=== PATIENT | female | born 1990 | race Caucasian/White ===

== ENCOUNTER 2016-08-20 19:04 | Emergency (ER) | payer OTHER ==
--- NOTE | 2016-08-20 20:07 | ED ---
Psych HPI - General Chief Complaint: Psychiatric Symptoms Stated Complaint: Suicidal Time Seen by Provider: 08/20/16 19:39 Source: patient, RN notes reviewed Mode of arrival: EMS - History of Present Illness Initial Comments: Patient is a 26-year-old female presents to the emergency room for psychiatric evaluation. Patient states that she's been depressed for many years. Patient states last night she was using heroine and debated on trying to inject it to end her life. Patient states today she realized that she needs help. Patient states that this morning she tried to smoke cocaine and drank a half pint of fireball whiskey. Patient states that she currently lives in [place] but is from [place]. Patient states she was living in [place] with her parents but got kicked out today. Patient states she's feeling very depressed and has thoughts about committing suicide but would never act upon it. Patient states she smokes about a pack per day. Patient states she occasionally smokes marijuana. Patient states last time she smoked marijuana was yesterday. Patient denies headache, dizziness, chest pain, shortness fevers, chills nausea , vomiting. Patient denies homicidal ideations. Patient denies visual or auditory hallucinations. - Related Data Home Medications Medication Instructions Recorded Confirmed ALPRAZolam [Xanax] 2 mg PO BID 08/20/16 08/20/16 Gabapentin Unknow Dose 2 cap PO QAM 08/20/16 08/20/16 Hydrocodone/Acetaminophen [[place] 1 tab PO Q8HR PRN 08/20/16 08/20/16 5-325] Allergies Allergy/AdvReac Type Severity Reaction Status Date / Time cephalexin monohydrate Allergy Unknown Verified 08/20/16 19:17 [From Keflex] Sulfa (Sulfonamide Allergy Unknown Verified 08/20/16 19:17 Antibiotics) Review of Systems ROS Statement: Those systems with pertinent positive or pertinent negative responses have been documented in the HPI. ROS Other: All systems not noted in ROS Statement are negative. Past Medical History Additional Past Medical History / Comment(s): chronic pain syndrome, fracture wrist History of Any Multi-Drug Resistant Organisms: MRSA Date of last positivie culture/infection: 2009 Past Surgical History: Orthopedic Surgery Additional Past Surgical History / Comment(s): mrsa abscess l elbow, " three knee surgery". oral surgery Past Psychological History: No Psychological Hx Reported Smoking Status: Current every day smoker Past Alcohol Use History: Daily Past Drug Use History: Marijuana General Exam - General Exam Comments Initial Comments: Laying in exam room, no acute distress. Limitations: no limitations General appearance: alert, appears intoxicated Head exam: Present: atraumatic, normocephalic, normal inspection Eye exam: Present: normal appearance ENT exam: Present: normal exam Neck exam: Present: normal inspection Respiratory exam: Present: normal lung sounds bilaterally. Absent: respiratory distress Cardiovascular Exam: Present: regular rate, normal rhythm, normal heart sounds Extremities exam: Present: normal inspection Back exam: Present: normal inspection Neurological exam: Present: alert, oriented X3, CN II-XII intact, normal gait Psychiatric exam: Present: normal affect, normal mood Skin exam: Present: warm, dry, intact, normal color. Absent: rash Course Vital Signs 08/20/16 08/20/16 08/21/16 19:06 22:58 01:38 Temperature 97.9 F 98.6 F 98.0 F Pulse Rate 63 97 79 Respiratory 20 20 18 Rate Blood Pressure 121/81 102/60 121/79 O2 Sat by Pulse 100 98 98 Oximetry Medical Decision Making - Medical Decision Making Patient is a 26 no female since emergency room for psychiatric evaluation. Patient has a history of polysubstance abuse. Patient is intoxicated and can be evaluated by EPS at 2330. Patient evaluated by EPS and feels that patient can follow-up outpatient. Patient will be provided with polysubstance abuse facilities along with outpatient [facility]. - Lab Data Lab Results 08/20/16 08/20/16 Range/Units 19:22 19:22 Urine HCG, Qual Not Detected (Not Detectd) Urine Opiates Screen Not Detected (NotDetected) Ur Oxycodone Screen Not Detected (NotDetected) Urine Methadone Screen Not Detected (NotDetected) Ur Propoxyphene Screen Not Detected (NotDetected) Ur Barbiturates Screen Not Detected (NotDetected) U Tricyclic Antidepress Not Detected (NotDetected) Ur Phencyclidine Scrn Not Detected (NotDetected) Ur Amphetamines Screen Not Detected (NotDetected) U Methamphetamines Scrn Not Detected (NotDetected) U Benzodiazepines Scrn Not Detected (NotDetected) Urine Cocaine Screen Detected H (NotDetected) U Marijuana (THC) Screen Detected H (NotDetected) Disposition Clinical Impression: Polysubstance abuse, Alcohol intoxication Disposition: HOME SELF-CARE Condition: Good Instructions: Polysubstance Abuse (ED) Additional Instructions: Please follow up with provided list of outpatient facilities. If any new symptom arises or symptoms worsen, return to ER as soon as possible. Referrals: Gerson Limon DO [Primary Care Provider] - 1-2 days Time of Disposition: 01:22
[2016-08-21 01:38] VITALS: BP 121/79; PULSE 79; RESP 18; TEMP 98
== END 2016-08-21 01:38 | disposition home or self-care (01) ==
LOC: SUPCPDRO 19:04 → EC 19:04
DX: F10.129 Alcohol abuse with intoxication, unspecified (principal); F19.10 Other psychoactive substance abuse, uncomplicated; F17.200 Nicotine dependence, unspecified, uncomplicated; Z86.14 Personal history of Methicillin resistant Staphylococcus aureus infection; Z88.2 Allergy status to sulfonamides; Z88.1 Allergy status to other antibiotic agents; Z79.899 Other long term (current) drug therapy; G89.4 Chronic pain syndrome
CPT/HCPCS: 80306; 81025; 82075; 99285

== ENCOUNTER 2023-12-28 15:37 | Emergency (ER) | payer OTHER ==
[2023-12-28 15:48] VITALS: RESP 16; TEMP 97.9
--- NOTE | 2023-12-28 16:29 | ED ---
General Adult HPI - General Chief complaint: Abdominal Pain Stated complaint: hernia Time Seen by Provider: 12/28/23 16:01 Source: patient, RN notes reviewed, old records reviewed Mode of arrival: wheelchair Limitations: no limitations - History of Present Illness Initial comments: 33-year-old female history of both ileostomy and colostomy presenting with hernia adjacent to her colostomy. Patient does admit that there is some pain at the site but she states that it will reduce when she lies flat. She was sent in from [place] for evaluation. She has had follow-up with [facility] regarding this hernia as well as this is who performed her initial surgeries. She does have plan for reversal but states she is attempting to gain weight prior to the surgery. She has had normal stool output from her ileostomy. No fever. No vomiting in the past 24 to 48 hours. - Related Data Home Medications Medication Instructions Recorded Confirmed ALPRAZolam [Xanax] 2 mg PO BID 08/20/16 08/20/16 Gabapentin Unknow Dose 2 cap PO QAM 08/20/16 08/20/16 Hydrocodone/Acetaminophen [[place] 1 tab PO Q8HR PRN 08/20/16 08/20/16 5-325] Allergies Allergy/AdvReac Type Severity Reaction Status Date / Time cephalexin monohydrate Allergy Unknown Verified 12/28/23 15:46 [From Keflex] Sulfa (Sulfonamide Allergy Unknown Verified 12/28/23 15:46 Antibiotics) Iodinated Contrast Media AdvReac Unknown Verified 12/28/23 15:46 Review of Systems ROS Statement: Those systems with pertinent positive or pertinent negative responses have been documented in the HPI. ROS Other: All systems not noted in ROS Statement are negative. Past Medical History Additional Past Medical History / Comment(s): chronic pain syndrome, fracture wrist, History of Any Multi-Drug Resistant Organisms: MRSA Date of last positivie culture/infection: 2009 Past Surgical History: Orthopedic Surgery Additional Past Surgical History / Comment(s): mrsa abscess l elbow, " three knee surgery". oral surgery, back surgery Past Psychological History: Bipolar Smoking Status: Current every day smoker Past Alcohol Use History: Daily Past Drug Use History: Cocaine, Marijuana, Methamphetamine General Exam Limitations: no limitations General appearance: alert, in no apparent distress Head exam: Present: atraumatic, normocephalic Eye exam: Present: normal appearance, PERRL ENT exam: Present: mucous membranes moist Respiratory exam: Present: normal lung sounds bilaterally. Absent: respiratory distress, wheezes Cardiovascular Exam: Present: regular rate, normal rhythm GI/Abdominal exam: Present: soft, other (Reducible parastomal hernia around the left abdominal colostomy site. No significant tenderness on exam. The mucosal surface is pink.). Absent: distended Extremities exam: Present: normal inspection Neurological exam: Present: alert, oriented X3 Psychiatric exam: Present: normal affect, normal mood Skin exam: Present: warm Course Vital Signs 12/28/23 15:47 Temperature 97.9 F Pulse Rate 80 Respiratory 16 Rate Blood Pressure 125/79 O2 Sat by Pulse 100 Oximetry Medical Decision Making - Medical Decision Making Was pt. sent in by a medical professional or institution ([facility], WEIGH TANK OPERATOR, urgent care, hospital, or long term...) When possible be specific @ -No Did you speak to anyone other than the patient for history (EMS, parent, family, police, friend...)? What history was obtained from this source @ -No Did you review nursing and triage notes (agree or disagree)? Why? @ -I reviewed and agree with nursing and triage notes Were old charts reviewed (outside hosp., previous admission, EMS record, old EKG, old radiological studies, urgent care reports/EKG's, long term records)? Report findings @ -No old charts were reviewed Differential Abdominal Pain Women: Appendicitis, Cholecystitis, diverticulosis, ischemic bowel, pancreatitis, hepatitis, UTI, gastroenteritis, AAA, incarcerated hernia, bowel obstruction, constipation, inflammatory bowel, hepatitis, peptic ulcer disease, splenic infarction, perforated viscus, vulvitis, ovarian torsion, PID, kidney stone, placenta abruption, this is not meant to be an all-inclusive list Abdominal Pain Men: Appendicitis, cholecystitis, diverticulosis, ischemic bowel, pancreatitis, hepatitis, UTI, gastroenteritis, AAA, incarcerated hernia, bowel obstruction, constipation, inflammatory bowel, hepatitis, peptic ulcer disease, splenic infarction, perforated viscus, testicular torsion, this is not meant to be an all-inclusive list Woman EKG interpreted by me (3pts min.). @ -As above X-rays interpreted by me (1pt min.). @ -None done CT interpreted by me (1pt min.). @ -None done U/S interpreted by me (1pt. min.). @ -None done What testing was considered but not performed or refused? (CT, X-rays, U/S, labs)? Why? @ -None What meds were considered but not given or refused? Why? @ -None Did you discuss the management of the patient with other professionals (professionals i.e. , PA, WEIGH TANK OPERATOR, lab, RT, psych nurse, director of social services, traffic rate clerk, teacher, retirement officer, dependency case manager)? Give summary @ -No Was smoking cessation discussed for >3mins.? @ -No Was critical care preformed (if so, how long)? @ -No Were there social determinants of health that impacted care today? How? (Homelessness, low income, unemployed, alcoholism, drug addiction, transportation, low edu. Level, literacy, decrease access to med. care, half-way, rehab)? @ -No Was there de-escalation of care discussed even if they declined (Discuss DNR or withdrawal of care, Hospice)? DNR status @ -No What co-morbidities impacted this encounter? (DM, HTN, Smoking, COPD, CAD, Cancer, CVA, ARF, Chemo, Hep., AIDS, mental health diagnosis, sleep apnea, morbid obesity)? @ -None Was patient admitted / discharged? Hospital course, mention meds given and route, prescriptions, significant lab abnormalities, going to OR and other pertinent info. @ -33-year-old female with ileostomy and colostomy presenting with a parastomal hernia to the colostomy on the left side of the abdomen. This is easily reducible with just lying flat. No fever. No pain on exam. Patient is stable for continued outpatient follow-up with return parameters. Undiagnosed new problem with uncertain prognosis? @ -No Drug Therapy requiring intensive monitoring for toxicity (Heparin, Nitro, Insulin, Cardizem)? @ -No Were any procedures done? @ -No Diagnosis/symptom? @ -Parastomal hernia Acute, or Chronic, or Acute on Chronic? @Chronic Uncomplicated (without systemic symptoms) or Complicated (systemic symptoms)? @ -Default Side effects of treatment? @ -No Exacerbation, Progression, or Severe Exacerbation? @ -No Poses a threat to life or bodily function? How? (Chest pain, [place], HI, pneumonia, PE, COPD, DKA, ARF, appy, cholecystitis, CVA, Diverticulitis, Homicidal, Suicidal, threat to staff... and all critical care pts) @ -No Disposition Clinical Impression: Parastomal hernia Disposition: HOME SELF-CARE Condition: Fair Instructions (If sedation given, give patient instructions): Ventral Hernia (ED) Additional Instructions: Please follow-up with your surgeons at [facility] Is patient prescribed a controlled substance at d/c from ED?: No Referrals: Gerson Limon DO [Primary Care Provider] - 1-2 days Time of Disposition: 16:30
[2023-12-28] MEDS: KETOROLAC 15 MG/ML 1 ML VIAL IM STA (16:48)
[2023-12-28 16:59] VITALS: BP 113/77; PULSE 85
== END 2023-12-28 16:59 | disposition home or self-care (01) ==
LOC: EC 15:37
DX: K43.5 Parastomal hernia without obstruction or gangrene (principal); F17.200 Nicotine dependence, unspecified, uncomplicated; F12.90 Cannabis use, unspecified, uncomplicated; F14.90 Cocaine use, unspecified, uncomplicated; F15.90 Other stimulant use, unspecified, uncomplicated; Z88.1 Allergy status to other antibiotic agents; Z88.2 Allergy status to sulfonamides; Z91.041 Radiographic dye allergy status; Z93.3 Colostomy status
CPT/HCPCS: 99283; 96372; J1885

== ENCOUNTER 2024-03-14 14:09 | Observation (INO) | payer OTHER ==
--- NOTE | 2024-03-14 14:24 | ED ---
General Adult HPI - General Stated complaint: overdose Time Seen by Provider: 03/14/24 14:10 Source: patient, EMS, RN notes reviewed, old records reviewed - History of Present Illness Initial comments: Patient is a 33-year-old female with past medical history remarkable for HIV on Biktarvy, chronic pain, polysubstance abuse, with 2 colostomies presents emergency department complaining of polysubstance intoxication. Patient used methamphetamine as well as marijuana and went to [place] to check into rehab. Patient took a large amount of marijuana THC edibles in addition to the mouth. She is sleepy but easily arousable. Denies any new pain or symptoms otherwise. States she is compliant with her medications. Was sent here for the altered mentation, intoxication. Denies chest pain, abdominal pain, nausea, vomiting, diarrhea. No shortness of breath. Presents for further evaluation. - Related Data Home Medications Medication Instructions Recorded Confirmed Bictegrav/Emtricit/Tenofov [place] 1 tab PO DAILY 03/14/24 03/14/24 [Biktarvy 50-200-25 mg Tablet] Cyclobenzaprine [Flexeril] 5 mg PO TID PRN 03/14/24 03/14/24 Ibuprofen [Motrin] 600 mg PO Q8HR PRN 03/14/24 03/14/24 Lidocaine 5% Oint [Xylocaine 5% 1 applic TOPICAL DAILY 03/14/24 03/14/24 Oint] lamoTRIgine [LaMICtal] 50 mg PO BID 03/14/24 03/14/24 Allergies Allergy/AdvReac Type Severity Reaction Status Date / Time cephalexin monohydrate Allergy Unknown Verified 03/14/24 14:39 [From Keflex] Sulfa (Sulfonamide Allergy Unknown Verified 03/14/24 14:39 Antibiotics) Iodinated Contrast Media AdvReac Unknown Verified 03/14/24 14:39 Review of Systems ROS Statement: Those systems with pertinent positive or pertinent negative responses have been documented in the HPI. Review of Systems: CONST: Denies fever EYES: Denies blurry vision ENT: Denies nasal congestion C/V: Denies Chest pain RESP: Denies shortness of breath GI: Denies abdominal pain : Denies dysuria SKIN: Denies rash. MSK: Denies joint pain. NEURO: Denies headache ROS Other: All systems not noted in ROS Statement are negative. Past Medical History Additional Past Medical History / Comment(s): chronic pain syndrome, fracture wrist, History of Any Multi-Drug Resistant Organisms: MRSA Date of last positivie culture/infection: 2009 Past Surgical History: Orthopedic Surgery Additional Past Surgical History / Comment(s): mrsa abscess l elbow, " three knee surgery". oral surgery, back surgery Past Psychological History: Bipolar Smoking Status: Current every day smoker Past Alcohol Use History: Daily Past Drug Use History: Cocaine, Marijuana, Methamphetamine General Exam - General Exam Comments Initial Comments: General: Appears intoxicated. HEAD: Normal with no signs of head trauma. EYES: PERRLA, EOMI, conjunctiva normal, no discharge. Pupils are 2 to 3 mm and equal bilaterally. ENT: Hearing grossly intact. RESPIRATORY: Clear breath sounds bilaterally. No wheezes, rales, or rhonchi. C/V: Regular rate and rhythm. S1 and S2 auscultated, no edema, peripheral pulses 2+ and intact throughout ABD: Abd is soft, nontender, nondistended. Multiple colostomies appear unremarkable. EXT: Normal range of motion, no obvious deformity SKIN: No rashes or lesions observed on exposed skin. NEURO: Alert and oriented x 4 however patient is somewhat more sleepy. Easily arousable. GCS is 14-15. No focal deficits. Course Vital Signs 03/14/24 03/14/24 14:23 18:32 Temperature 97.8 F Pulse Rate 100 83 Respiratory 18 16 Rate Blood Pressure 110/81 96/66 O2 Sat by Pulse 97 99 Oximetry Medical Decision Making - Medical Decision Making Was pt. sent in by a medical professional or institution ([facility], CREPE MAKER, urgent care, hospital, or group home...) When possible be specific @ -Sent from [place] over concern for altered mental status likely secondary to intoxication. Did you speak to anyone other than the patient for history (EMS, parent, family, police, friend...)? What history was obtained from this source @ -No Did you review nursing and triage notes (agree or disagree)? Why? @ -I reviewed and agree with nursing and triage notes Were old charts reviewed (outside hosp., previous admission, EMS record, old EKG, old radiological studies, urgent care reports/EKG's, group home records)? Report findings @ -Old charts confirm patient's past medical history of polysubstance abuse Differential Diagnosis (chest pain, altered mental status, abdominal pain women, abdominal pain men, vaginal bleeding, weakness, fever, dyspnea, syncope, headache, dizziness, GI bleed, back pain, seizure, CVA, palpatations, mental health, musculoskeletal)? @ -Differential Altered Mental Status: Hypoglycemia, DKA, hypercapnia, ETOH, overdose, CO poisoning, trauma, myxedema coma, HTN encephalopathy, infection, encephalitis, psychosis, intercranial hemorrhage, hepatic encephalopathy, meningitis, CVA, this is not meant to be an all-inclusive list EKG interpreted by me (3pts min.). @ -As above X-rays interpreted by me (1pt min.). @ -Chest x-ray reveals no obvious acute cardiopulmonary process. CT interpreted by me (1pt min.). @ -CT brain reveals no obvious acute intracranial process. U/S interpreted by me (1pt. min.). @ -None done What testing was considered but not performed or refused? (CT, X-rays, U/S, labs)? Why? @ -None What meds were considered but not given or refused? Why? @ -None Did you discuss the management of the patient with other professionals (professionals i.e. , PA, CREPE MAKER, lab, RT, psych nurse, healthcare social worker, oracle ascp consultant, teacher, aircraft electronics technical officer, patient case coordinator)? Give summary @ -Discussed with Dr. Mcdermott who accepted the admission. Was smoking cessation discussed for >3mins.? @ -No Was critical care preformed (if so, how long)? @ -No Were there social determinants of health that impacted care today? How? (Homelessness, low income, unemployed, alcoholism, drug addiction, transportation, low edu. Level, literacy, decrease access to med. care, long-term, rehab)? @ -No Was there de-escalation of care discussed even if they declined (Discuss DNR or withdrawal of care, Hospice)? DNR status @ -No What co-morbidities impacted this encounter? (DM, HTN, Smoking, COPD, CAD, Cancer, CVA, ARF, Chemo, Hep., AIDS, mental health diagnosis, sleep apnea, morbid obesity)? @ -HIV on Biktarvy, polysubstance abuse Was patient admitted / discharged? Hospital course, mention meds given and route, prescriptions, significant lab abnormalities, going to OR and other pertinent info. @ -Based on patient's presentation and physical exam, presents for altered mentation likely secondary to substance abuse and intoxication. Likely secondary to large amount of edible THC she took today as well as methamphetamine use. We will obtain altered mental status workup. Patient was in agreement this plan. She will receive IV fluids. Will continue to monitor the patient. Patient's labs are unremarkable. Urine studies are still pending at this time. Imaging is also unremarkable. EKG showed no signs of acute ischemia. I updated the patient. She is still sleepy from her THC ingestion. I would like to admit her at this time as she is not back to her baseline. She was in agreement this plan. I spoke with the admitting provider, Dr. Mcdermott who accepted the admission. Undiagnosed new problem with uncertain prognosis? @ -No Drug Therapy requiring intensive monitoring for toxicity (Heparin, Nitro, Insulin, Cardizem)? @ -No Were any procedures done? @ -No Diagnosis/symptom? @ -Polysubstance abuse, intoxication Acute, or Chronic, or Acute on Chronic? @ -Acute on chronic Uncomplicated (without systemic symptoms) or Complicated (systemic symptoms)? @ -Complicated Side effects of treatment? @ -None Exacerbation, Progression, or Severe Exacerbation] @ -No Poses a threat to life or bodily function? @ -Potentially, yes - Lab Data Result diagrams: 03/14/24 14:34 03/14/24 14:34 Lab Results 03/14/24 03/14/24 03/14/24 Range/Units 14:34 14:34 14:34 WBC 6.3 (3.8-10.6) k/uL RBC 3.91 (3.80-5.40) m/uL Hgb 12.9 (11.4-16.0) gm/dL Hct 37.1 (34.0-46.0) % MCV 95.0 (80.0-100.0) fL MCH 33.1 (25.0-35.0) pg MCHC 34.8 (31.0-37.0) g/dL RDW 12.0 (11.5-15.5) % Plt Count 211 (150-450) k/uL MPV 7.9 Neutrophils % 68 % Lymphocytes % 26 % Monocytes % 3 % Eosinophils % 2 % Basophils % 0 % Neutrophils # 4.3 (1.3-7.7) k/uL Lymphocytes # 1.6 (1.0-4.8) k/uL Monocytes # 0.2 (0-1.0) k/uL Eosinophils # 0.1 (0-0.7) k/uL Basophils # 0.0 (0-0.2) k/uL PT 11.7 (10.0-12.5) sec INR 1.1 (<1.2) APTT 22.5 (22.0-30.0) sec Sodium 136 L (137-145) mmol/L Potassium 4.3 (3.5-5.1) mmol/L Chloride 109 H (98-107) mmol/L Carbon Dioxide 20 L (22-30) mmol/L Anion Gap 7 mmol/L BUN 18 H (7-17) mg/dL Creatinine 0.86 (0.52-1.04) mg/dL Est GFR (CKD-EPI)AfAm >90 (>60 ml/min/1.73 sqM) Est GFR (CKD-EPI)NonAf 89 (>60 ml/min/1.73 sqM) Glucose 102 H (74-99) mg/dL Calcium 9.7 (8.4-10.2) mg/dL Total Bilirubin 0.6 (0.2-1.3) mg/dL AST 28 (14-36) U/L ALT 29 (4-34) U/L Alkaline Phosphatase 77 (38-126) U/L Ammonia (<30) umol/L Total Protein 6.8 (6.3-8.2) g/dL Albumin 4.5 (3.5-5.0) g/dL Serum Alcohol <10 mg/dL 03/14/24 Range/Units 14:34 WBC (3.8-10.6) k/uL RBC (3.80-5.40) m/uL Hgb (11.4-16.0) gm/dL Hct (34.0-46.0) % MCV (80.0-100.0) fL MCH (25.0-35.0) pg MCHC (31.0-37.0) g/dL RDW (11.5-15.5) % Plt Count (150-450) k/uL MPV Neutrophils % % Lymphocytes % % Monocytes % % Eosinophils % % Basophils % % Neutrophils # (1.3-7.7) k/uL Lymphocytes # (1.0-4.8) k/uL Monocytes # (0-1.0) k/uL Eosinophils # (0-0.7) k/uL Basophils # (0-0.2) k/uL PT (10.0-12.5) sec INR (<1.2) APTT (22.0-30.0) sec Sodium (137-145) mmol/L Potassium (3.5-5.1) mmol/L Chloride (98-107) mmol/L Carbon Dioxide (22-30) mmol/L Anion Gap mmol/L BUN (7-17) mg/dL Creatinine (0.52-1.04) mg/dL Est GFR (CKD-EPI)AfAm (>60 ml/min/1.73 sqM) Est GFR (CKD-EPI)NonAf (>60 ml/min/1.73 sqM) Glucose (74-99) mg/dL Calcium (8.4-10.2) mg/dL Total Bilirubin (0.2-1.3) mg/dL AST (14-36) U/L ALT (4-34) U/L Alkaline Phosphatase (38-126) U/L Ammonia <9 (<30) umol/L Total Protein (6.3-8.2) g/dL Albumin (3.5-5.0) g/dL Serum Alcohol mg/dL - EKG Data -: EKG Interpreted by Me EKG Comments: 12-lead Electrocardiogram Interpretation Note EKG was reviewed and interpreted by myself. 12-lead ECG performed at 1500 is interpreted by me as revealing normal sinus rhythm at a rate of 92 beats per minute. [place] is normal. MI interval is 153 ms, QRS duration is 93 ms, QTc is 409 ms.. There were no ST or T wave abnormalities to suggest myocardial ischemia or injury. R wave progression across the precordium was satisfactory. By my interpretation this EKG is non-diagnostic for acute ischemia. Disposition Clinical Impression: Polysubstance abuse, Intoxication Disposition: ADMITTED IP TO THIS HOSP Condition: Stable Time of Disposition: 16:35
[2024-03-14] MEDS: SODIUM CHLORIDE 0.9% 1,000 ML IV ONE (15:37)
[2024-03-14 15:47] LABS: Basophils % (A) 0 %; Eosinophils # (A) 0.1 k/uL (0-0.7); Eosinophils % (A) 2 %; HCT 37.1 % (34.0-46.0); HGB 12.9 gm/dL (11.4-16.0); Lymphocytes # (A) 1.6 k/uL (1.0-4.8); Lymphocytes % (A) 26 %; MCH 33.1 pg (25.0-35.0); MCHC 34.8 g/dL (31.0-37.0); Mean Platelet Volume 7.9; Monocytes # (A) 0.2 k/uL (0-1.0); Monocytes % (A) 3 %; Neutrophils # (A) 4.3 k/uL (1.3-7.7); Neutrophils % (A) 68 %; Platelet Count 211 k/uL (150-450); RBC 3.91 m/uL (3.80-5.40); WBC 6.3 k/uL (3.8-10.6)
[2024-03-14 15:56] LABS: ALT 29 U/L (4-34); AST 28 U/L (14-36); African American GFR (CKD) >90 (>60 ml/min/1.73 sqM); Albumin 4.5 g/dL (3.5-5.0); Alcohol <10 mg/dL; Alkaline Phosphatase 77 U/L (38-126); Anion Gap 7 mmol/L; Blood Urea Nitrogen 18 mg/dL (7-17); Calcium 9.7 mg/dL (8.4-10.2); Carbon Dioxide 20 mmol/L (22-30); Chloride 109 mmol/L (98-107); Glucose 102 mg/dL (74-99); Non-African American GFR(CKD) 89 (>60 ml/min/1.73 sqM); Potassium 4.3 mmol/L (3.5-5.1); Sodium 136 mmol/L (137-145); Total Bilirubin 0.6 mg/dL (0.2-1.3); Total Protein 6.8 g/dL (6.3-8.2)
--- NOTE | 2024-03-14 15:56 | CT ---
EXAMINATION TYPE: CT brain wo con DATE OF EXAM: 03/14/2024 COMPARISON: None HISTORY: AMS. drug overdose CT DLP: 1139.[address] of the brain was performed. The ventricles, basal cisterns and sulci overlying the cerebral convexities demonstrate a normal appe arance. There is no evidence for intracranial hemorrhage or sulcal effacement. No mass effects are seen. Osseous calvarium is intact. If symptoms persist consider MRI as clinically warranted. IMPRESSION: 1. No acute intracranial process is seen at this time. [facility], , 03/14/2024 3:53 PM
[2024-03-14 15:57] LABS: INR 1.1 (<1.2); Partial Thromboplastin Time 22.5 sec (22.0-30.0); Prothrombin Time 11.7 sec (10.0-12.5)
--- NOTE | 2024-03-14 16:08 | XR ---
EXAMINATION TYPE: XR chest 2V DATE OF EXAM: 03/14/2024 COMPARISON: 05/16/14 HISTORY: Chest pain TECHNIQUE: Frontal and lateral views of the chest are obtained. FINDINGS: There is no focal air space opacity. No evidence for pneumothorax. No pleural effusion. The cardiac silhouette size is within normal limits. The osseous structures are grossly intact. IMPRESSION: 1. No acute cardiopulmonary process. [facility], , 03/14/2024 4:06 PM
[2024-03-14] MEDS ORDERED: NALOXONE 0.4 MG/ML 1 ML VIAL IV PRN (16:50)
[2024-03-14] MEDS: SODIUM CHLORIDE 0.9% 1,000 ML IV SCH (20:03)
[2024-03-15 02:20] LABS: Appearance,Urine Cloudy (Clear); Bilirubin,Urine Negative (Negative); Blood,Urine Negative (Negative); Calcium Oxalate Crystals,Urine Occasional /hpf; Color,Urine Yellow; Glucose,Urine (UA) Negative (Negative); Hyaline Casts,Urine 5 /lpf (0-2); Ketones,Urine Negative (Negative); Leukocyte Esterase,Urine Negative (Negative); Mucus,Urine Many /hpf; Nitrite,Urine Negative (Negative); Protein,Urine 1+ (Negative); RBC,Urine 1 /hpf (0-5); Squamous Epithelial Cell,Urine 3 /hpf (0-4); Urobilinogen,Urine <2.0 mg/dL (<2.0); WBC,Urine 2 /hpf (0-5)
[2024-03-15 02:22] LABS: Amphetamine Screen,Urine Detected (NotDetected); Barbiturate Screen,Urine Not Detected (NotDetected); Benzodiazepines Screen,Urine Not Detected (NotDetected); Cocaine Screen,Urine Not Detected (NotDetected); Methadone Screen, Urine Not Detected (NotDetected); Opiate Screen,Urine Not Detected (NotDetected); Oxycodone Screen, Urine Not Detected (NotDetected); Phencyclidine Screen,Urine Not Detected (NotDetected); Tricyclic Antidepressant,Urine Not Detected (NotDetected); Urn Cannabinoid Scrn Detected (NotDetected)
[2024-03-15] MEDS: NON FORMULARY DRUG (Bictegrav/Emtricit/Tenofov Ala [Biktarvy 50-200-25 Mg Tablet] 1 EACH T PO SCH (08:28)
[2024-03-15 08:32] VITALS: RESP 18
[2024-03-15 11:00] LABS: Calcium 9.3 mg/dL (8.7-10.3); Carbon Dioxide 19.3 mmol/L (21.6-31.8); Chloride 107 mmol/L (96-109); Glucose 113 mg/dL (70-110); Sodium 138 mmol/L (135-145)
[2024-03-15 11:06] LABS: Basophils # (A) 0.04 X 10*3/uL (0.00-0.10); Basophils % (A) 0.6 %; Eosinophils # (A) 0.26 X 10*3/uL (0.04-0.35); Eosinophils % (A) 4.1 %; HCT 40.3 % (37.2-46.3); HGB 13.8 g/dL (12.0-15.0); Lymphocytes % (A) 42.9 %; MCH 33.3 pg (27.0-32.0); MCHC 34.2 g/dL (32.0-37.0); MCV 97.3 FL (80.0-97.0); Mean Platelet Volume 11.2 FL (9.5-12.2); Monocytes # (A) 0.26 X 10*3/uL (0.20-1.00); Monocytes % (A) 4.1 %; NRBC Per 100 WBC 0 X 10*3/uL (0.00-0.01); Neutrophils # (A) 3.03 X 10*3/uL (1.80-7.70); Neutrophils % (A) 48.1 %; Platelet Count 221 X 10*3/uL (140-440); RBC 4.14 X 10*6/uL (4.10-5.20); RDW 11.9 % (11.5-14.5)
[2024-03-15] MEDS: NICOTINE 21MG/24HR PATCH TRANSDERM SCH (11:26)
[2024-03-15 11:33] VITALS: BP 93/62; PULSE 86; TEMP 98.3
[2024-03-15 11:50] LABS: T4/T8 Ratio (CD4:CD8) 2.1 (1.0-3.7)
--- NOTE | 2024-03-15 13:19 | P.HPIM ---
History of Present Illness H&P Date: 03/15/24 History of present illness; 33-year-old female presents to the emergency department complaining of polysubstance intoxication. Patient's past medical history of HIV currently on Biktarvy, chronic pain, polysubstance abuse, with 2 colostomies. Patient states that she used methamphetamine as well as marijuana and went to [place] [facility]. She states that she took a large amount of marijuana THC edibles by mouth. She is sleepy but easily arousable. She denies any new pain or symptoms. States that she is compliant with her medications and states that she was sent here from [place] due to her altered mentation and intoxication. She denies any chest pain, shortness of breath, abdominal pain, nausea, vomiting, diarrhea. On arrival patient was afebrile with a blood pressure of 110/81, heart rate of 100, respiratory rate of 18, saturating 90% on room air. Upon seeing her she states she currently feels well, no longer having the effects of the THC Gummies which caused her to have altered mental status. Patient looking forward to being discharged so that she can go to rehab. Initial lab work done in the ER showed WBC 6.3, Hgb 12.9, Hct 37.1 PLT 211; PT 11.7, INR 1.1, PTT 22.5; sodium 136, potassium 4.3, chloride 109, BUN 18, creatinine 0.86 Urinalysis cloudy in appearance with 1+ protein, occasional calcium oxalate crystals, 5 hyaline cast, many urine mucus Toxicology positive for amphetamines, methamphetamines, marijuana EKG done in the ER showed heart rate of 92, no ST segment elevation or depression seen, no T-wave inversions seen. Chest x-ray done in the ER no acute cardiopulmonary process CT head done showed no acute intracranial process Patient admitted to internal medicine service REVIEW OF SYSTEMS: CONSTITUTIONAL: No fever, no malaise, no fatigue. HEENT: No recent visual problems or hearing problems. Denied any sore throat. CARDIOVASCULAR: No chest pain, orthopnea, PND, no palpitations, no syncope. PULMONARY: No shortness of breath, no cough, no hemoptysis. GASTROINTESTINAL: No diarrhea, no nausea, no vomiting, no abdominal pain. NEUROLOGICAL: No headaches, no weakness, no numbness. HEMATOLOGICAL: Denies any bleeding or petechiae. GENITOURINARY: Denies any burning micturition, frequency, or urgency. MUSCULOSKELETAL/RHEUMATOLOGICAL: Denies any joint pain, swelling, or any muscle pain. ENDOCRINE: Denies any polyuria or polydipsia. The rest of the 14-point review of systems is negative. PHYSICAL EXAMINATION: GENERAL: The patient is alert and oriented x3, not in any acute distress. Well developed, well nourished. HEENT: Pupils are round and equally reacting to light. EOMI. No scleral icterus. No conjunctival pallor. Normocephalic, atraumatic. No pharyngeal erythema. No thyromegaly. CARDIOVASCULAR: S1 and S2 present. No murmurs, rubs, or gallops. PULMONARY: Chest is clear to auscultation, no wheezing or crackles. ABDOMEN: Soft, nontender, nondistended, normoactive bowel sounds. No palpable organomegaly. MUSCULOSKELETAL: No joint swelling or deformity. EXTREMITIES: No cyanosis, clubbing, or pedal edema. NEUROLOGICAL: Gross neurological examination did not reveal any focal deficits. SKIN: No rashes. Assessment and plan #Altered mental status secondary to intoxication - resolved It was stated that patient presented with altered mental status secondary to intoxication with THC Gummies Has since resolved and would like to go back to rehab upon discharge from the hospital #HIV controlled on Biktarvy Will resume patient's Biktarvy HIV has been well-controlled on Biktarvy for years She prefers the daily pill over the once monthly injection # Nicotine dependence Patient states she is a regular smoker Requested nicotine patch while present in the emergency department which was ordered for Continue to monitor vital signs, monitor CBC, monitor CMP Labs and medication were reviewed. Continue with symptomatic treatment. Resume home medication. Dictation was produced using [employer] dictation software. please excuse any grammatical, word or spelling errors. Past Medical History Additional Past Medical History / Comment(s): chronic pain syndrome, fracture wrist, History of Any Multi-Drug Resistant Organisms: MRSA Date of last positivie culture/infection: 2009 Past Surgical History: Orthopedic Surgery Additional Past Surgical History / Comment(s): mrsa abscess l elbow, " three knee surgery". oral surgery, back surgery Past Psychological History: Bipolar Smoking Status: Current every day smoker Past Alcohol Use History: Daily Past Drug Use History: Cocaine, Marijuana, Methamphetamine Medications and Allergies Home Medications Medication Instructions Recorded Confirmed Type Bictegrav/Emtricit/Tenofov Ala 1 tab PO DAILY 03/14/24 03/14/24 History [Biktarvy 50-200-25 mg Tablet] Cyclobenzaprine [Flexeril] 5 mg PO TID PRN 03/14/24 03/14/24 History Ibuprofen [Motrin] 600 mg PO Q8HR PRN 03/14/24 03/14/24 History Lidocaine 5% Oint [Xylocaine 5% 1 applic TOPICAL DAILY 03/14/24 03/14/24 History Oint] lamoTRIgine [LaMICtal] 50 mg PO BID 03/14/24 03/14/24 History Allergies Allergy/AdvReac Type Severity Reaction Status Date / Time cephalexin monohydrate Allergy Unknown Verified 03/14/24 14:39 [From Keflex] Sulfa (Sulfonamide Allergy Unknown Verified 03/14/24 14:39 Antibiotics) Iodinated Contrast Media AdvReac Unknown Verified 03/14/24 14:39 Physical Exam Vitals: Vital Signs Temp Pulse Pulse Resp BP BP Pulse Ox 03/15/24 02:00 16 03/14/24 20:00 98.3 F 94 16 109/60 97 03/14/24 18:32 83 16 96/66 99 03/14/24 14:23 97.8 F 100 18 110/81 97 Intake and Output 03/14/24 03/15/24 03/15/24 22:59 06:59 14:59 Other: # Voids 0 2 Results CBC & Chem 7: 03/15/24 06:59 03/15/24 06:59 Labs: Abnormal Lab Results - Last 24 Hours (Table) 03/14/24 03/15/24 Range/Units 14:34 01:00 Sodium 136 L (137-145) mmol/L Chloride 109 H (98-107) mmol/L Carbon Dioxide 20 L (22-30) mmol/L BUN 18 H (7-17) mg/dL Glucose 102 H (74-99) mg/dL Urine Appearance Cloudy H (Clear) Urine Protein 1+ H (Negative) Calcium Oxalate Crystal Occasional H (None) /hpf Hyaline Casts 5 H (0-2) /lpf Urine Mucus Many H (None) /hpf Ur Amphetamines Screen Detected H (NotDetected) U Methamphetamines Scrn Detected H (NotDetected) U Marijuana (THC) Screen Detected H (NotDetected)
--- NOTE | 2024-03-15 13:22 | P.DS ---
Providers Date of admission: 03/14/24 16:51 Attending physician: Flakito Mcdermott MD Primary care physician: Physician Nonstaff Hospital Course: Discharge diagnoses; #Altered mental status secondary to intoxication - resolved #HIV controlled on Biktarvy # Nicotine dependence Hospital course; 33-year-old female presents to the emergency department complaining of polysubstance intoxication. Patient's past medical history of HIV currently on Biktarvy, chronic pain, polysubstance abuse, with 2 colostomies. Patient states that she used methamphetamine as well as marijuana and went to [place] [facility]. She states that she took a large amount of marijuana THC edibles by mouth. She is sleepy but easily arousable. She denies any new pain or symptoms. States that she is compliant with her medications and states that she was sent here from [place] due to her altered mentation and intoxication. She denies any chest pain, shortness of breath, abdominal pain, nausea, vomiting, diarrhea. On arrival patient was afebrile with a blood pressure of 110/81, heart rate of 100, respiratory rate of 18, saturating 90% on room air. Upon seeing her she states she currently feels well, no longer having the effects of the THC Gummies which caused her to have altered mental status. Patient looking forward to being discharged so that she can go to rehab. Initial lab work done in the ER showed WBC 6.3, Hgb 12.9, Hct 37.1 PLT 211; PT 11.7, INR 1.1, PTT 22.5; sodium 136, potassium 4.3, chloride 109, BUN 18, creatinine 0.86 Urinalysis cloudy in appearance with 1+ protein, occasional calcium oxalate crystals, 5 hyaline cast, many urine mucus Toxicology positive for amphetamines, methamphetamines, marijuana EKG done in the ER showed heart rate of 92, no ST segment elevation or depression seen, no T-wave inversions seen. Chest x-ray done in the ER no acute cardiopulmonary process CT head done showed no acute intracranial process Patient was able to be discharged following catholic of her mental status. She states that she will be going to to rehab upon discharge. PHYSICAL EXAMINATION: GENERAL: The patient is alert and oriented x3, not in any acute distress. Well developed, well nourished. HEENT: Pupils are round and equally reacting to light. EOMI. No scleral icterus. No conjunctival pallor. Normocephalic, atraumatic. No pharyngeal erythema. No thyromegaly. CARDIOVASCULAR: S1 and S2 present. No murmurs, rubs, or gallops. PULMONARY: Chest is clear to auscultation, no wheezing or crackles. ABDOMEN: Soft, nontender, nondistended, normoactive bowel sounds. No palpable organomegaly. MUSCULOSKELETAL: No joint swelling or deformity. EXTREMITIES: No cyanosis, clubbing, or pedal edema. NEUROLOGICAL: Gross neurological examination did not reveal any focal deficits. SKIN: No rashes. Dictation was produced using [employer] dictation software. please excuse any grammatical, word or spelling errors. Patient Condition at Discharge: Stable Plan - Discharge Summary New Discharge Prescriptions: Continue lamoTRIgine [LaMICtal] 50 mg PO BID Bictegrav/Emtricit/Tenofov Ala [Biktarvy 50-200-25 mg Tablet] 1 tab PO DAILY Lidocaine 5% Oint [Xylocaine 5% Oint] 1 applic TOPICAL DAILY Ibuprofen [Motrin] 600 mg PO Q8HR PRN PRN Reason: Pain Or Fever > 100.5 Cyclobenzaprine [Flexeril] 5 mg PO TID PRN PRN Reason: Muscle Spasm Discharge Medication List Bictegrav/Emtricit/Tenofov Ala [Biktarvy 50-200-25 mg Tablet] 1 tab PO DAILY 03/14/24 [History] Cyclobenzaprine [Flexeril] 5 mg PO TID PRN 03/14/24 [History] Ibuprofen [Motrin] 600 mg PO Q8HR PRN 03/14/24 [History] Lidocaine 5% Oint [Xylocaine 5% Oint] 1 applic TOPICAL DAILY 03/14/24 [History] lamoTRIgine [LaMICtal] 50 mg PO BID 03/14/24 [History] Follow up Appointment(s)/Referral(s): Nonstaff,Physician [Primary Care Provider] - 1-2 days Discharge/Stand Alone Forms: Inp Substance Abuse Facilities Discharge Disposition: HOME SELF-CARE
== END 2024-03-15 12:20 | disposition home or self-care (01) ==
LOC: EC 14:09 → 6NMEDSUR 16:51
PROVIDERS: ADMIT Internal Medicine; ATTEND Internal Medicine
DX: F12.129 Cannabis abuse with intoxication, unspecified (principal); F15.129 Other stimulant abuse with intoxication, unspecified; Z21 Asymptomatic human immunodeficiency virus [HIV] infection status; G89.4 Chronic pain syndrome; F17.200 Nicotine dependence, unspecified, uncomplicated; Z79.899 Other long term (current) drug therapy; Z88.2 Allergy status to sulfonamides; Z88.1 Allergy status to other antibiotic agents; Z91.041 Radiographic dye allergy status
CPT/HCPCS: 36415; 70450; 71046; 80048; 80053; 80306; 80320; 81001; 82140; 85025; 85610; 85730; 86360; 93005; 96360; 96361; 99285

== ENCOUNTER 2024-09-24 20:39 | Emergency (ER) | payer OTHER ==
[2024-09-24] MEDS: KETOROLAC 15 MG/ML 1 ML VIAL IM STA (21:41)
[2024-09-24] MEDS: ORPHENADRINE 30 MG/ML 2 ML VIAL IM STA (21:42)
--- NOTE | 2024-09-24 21:44 | ED ---
General Adult HPI - General Chief complaint: Extremity Injury, Lower Stated complaint: Back pain-Abcess R Ankle Time Seen by Provider: 09/24/24 20:58 Source: patient, RN notes reviewed Mode of arrival: wheelchair Limitations: no limitations - History of Present Illness Initial comments: 34-year-old female presents emergency department with complaints of low back pain, right ankle pain. Patient states that she did have increasing back pain in the last several weeks she does have a history of surgery. Denies any bladder patient states she has colostomy without any changes. Patient states that she has right ankle pain states that she injected meth a couple weeks ago. Patient denies any sweats. - Related Data Home Medications Medication Instructions Recorded Confirmed Bictegrav/Emtricit/Tenofov Ala 1 tab PO DAILY 03/14/24 03/14/24 [Biktarvy 50-200-25 mg Tablet] Cyclobenzaprine [Flexeril] 5 mg PO TID PRN 03/14/24 03/14/24 Ibuprofen [Motrin] 600 mg PO Q8HR PRN 03/14/24 03/14/24 Lidocaine 5% Oint [Xylocaine 5% 1 applic TOPICAL DAILY 03/14/24 03/14/24 Oint] lamoTRIgine [LaMICtal] 50 mg PO BID 03/14/24 03/14/24 Previous Rx's Medication Instructions Recorded Amoxic-Pot Clav 875-125Mg 1 tab PO Q12HR #20 tab 09/24/24 [Augmentin 875-125] Allergies Allergy/AdvReac Type Severity Reaction Status Date / Time cephalexin monohydrate Allergy Unknown Verified 03/14/24 14:39 [From Keflex] Sulfa (Sulfonamide Allergy Unknown Verified 03/14/24 14:39 Antibiotics) Iodinated Contrast Media AdvReac Unknown Verified 03/14/24 14:39 Review of Systems ROS Statement: Those systems with pertinent positive or pertinent negative responses have been documented in the HPI. ROS Other: All systems not noted in ROS Statement are negative. Past Medical History Additional Past Medical History / Comment(s): chronic pain syndrome, fracture wrist, HIV History of Any Multi-Drug Resistant Organisms: MRSA Date of last positivie culture/infection: 2009 Past Surgical History: Orthopedic Surgery Additional Past Surgical History / Comment(s): mrsa abscess l elbow, " three knee surgery". oral surgery, back surgery Past Psychological History: Bipolar Smoking Status: Current every day smoker Past Alcohol Use History: None Reported Past Drug Use History: IV Drug Use, Marijuana, Methamphetamine General Exam Limitations: no limitations General appearance: alert, in no apparent distress Head exam: Present: atraumatic, normocephalic, normal inspection Eye exam: Present: normal appearance, PERRL, EOMI. Absent: scleral icterus, conjunctival injection, periorbital swelling ENT exam: Present: normal exam, normal oropharynx, mucous membranes moist Neck exam: Present: normal inspection, full ROM. Absent: tenderness, meningismus, lymphadenopathy Respiratory exam: Present: normal lung sounds bilaterally. Absent: respiratory distress, wheezes, rales, rhonchi, stridor Cardiovascular Exam: Present: normal rhythm, tachycardia, normal heart sounds. Absent: systolic murmur, diastolic murmur, rubs, gallop, clicks Extremities exam: Present: other (Lower extremity strength equal bilaterally neurovascular intact there is mild erythema of the right ankle patient has full range of motion without pain) Neurological exam: Present: alert, oriented X3, reflexes normal. Absent: motor sensory deficit Skin exam: Present: warm, dry, intact, normal color. Absent: rash Course Vital Signs 09/24/24 20:49 Temperature 98.1 F Pulse Rate 119 H Respiratory 18 Rate Blood Pressure 121/74 O2 Sat by Pulse 99 Oximetry Medical Decision Making - Medical Decision Making Was pt. sent in by a medical professional or institution ([facility], INCIDENT RESPONSE COORDINATOR, urgent care, hospital, or long-term...) When possible be specific @ -No Did you speak to anyone other than the patient for history (EMS, parent, family, police, friend...)? What history was obtained from this source @ -No Did you review nursing and triage notes (agree or disagree)? Why? @ -I reviewed and agree with nursing and triage notes Were old charts reviewed (outside hosp., previous admission, EMS record, old EKG, old radiological studies, urgent care reports/EKG's, long-term records)? Report findings @ -No old charts were reviewed Differential Diagnosis (chest pain, altered mental status, abdominal pain women, abdominal pain men, vaginal bleeding, weakness, fever, dyspnea, syncope, headache, dizziness, GI bleed, back pain, seizure, CVA, palpatations, mental health, musculoskeletal)? @ -Differential Back Pain: Strain, zoster, cauda equina syndrome, epidural abscess, vertebral osteomyelitis, discitis, fracture, subluxation, disc herniation, DJD, spinal stenosis, dissection, AAA, pancreatitis, peptic ulcer disease, pyelonephritis, kidney stone, this is not meant to be an all-inclusive list. EKG interpreted by me (3pts min.). @ -None X-rays interpreted by me (1pt min.). @ -X-ray lumbar spine showing postsurgical changes no other acute process Right ankle x-ray soft tissue swelling no bony erosion or fracture CT interpreted by me (1pt min.). @ -None done U/S interpreted by me (1pt. min.). @ -None done What testing was considered but not performed or refused? (CT, X-rays, U/S, labs)? Why? @ -None What meds were considered but not given or refused? Why? @ -None Did you discuss the management of the patient with other professionals (peng joshua i.e. , PA, INCIDENT RESPONSE COORDINATOR, lab, RT, psych nurse, social insurance adviser, aircraft maintenance technician, teacher, chief security and safety officer, case liner)? Give summary @ -No Was smoking cessation discussed for >3mins.? @ -No Was critical care preformed (if so, how long)? @ -No Were there social determinants of health that impacted care today? How? (Homelessness, low income, unemployed, alcoholism, drug addiction, transportation, low edu. Level, literacy, decrease access to med. care, fci, rehab)? @ -No Was there de-escalation of care discussed even if they declined (Discuss DNR or withdrawal of care, Hospice)? DNR status @ -No What co-morbidities impacted this encounter? (DM, HTN, Smoking, COPD, CAD, Cancer, CVA, ARF, Chemo, Hep., AIDS, mental health diagnosis, sleep apnea, morbid obesity)? @ -None Was patient admitted / discharged? Hospital course, mention meds given and route, prescriptions, significant lab abnormalities, going to OR and other pertinent info. @ -Discharge patient has evidence of UTI patient will place on oral antibiotics patient given initial dose patient does have slight infection from methamphetamine use. Patient will be discharged on Bactrim return parameters rob. Undiagnosed new problem with uncertain prognosis? @ -No Drug Therapy requiring intensive monitoring for toxicity (Heparin, Nitro, Insulin, Cardizem)? @ -No Were any procedures done? @ -No Diagnosis/symptom? @ -Neck pain, UTI methamphetamine abuse, cellulitis Acute, or Chronic, or Acute on Chronic? @ -[Acute Uncomplicated (without systemic symptoms) or Complicated (systemic symptoms)? @ -Uncomplicated Side effects of treatment? @ -No Exacerbation, Progression, or Severe Exacerbation? @ -No Poses a threat to life or bodily function? How? (Chest pain, [place], SD, pneumonia, PE, COPD, DKA, ARF, appy, cholecystitis, CVA, Diverticulitis, Homicidal, Suicidal, threat to staff... and all critical care pts) @ -No - Lab Data Lab Results 09/24/24 Range/Units 21:51 Urine Color Yellow Urine Appearance Turbid H (Clear) Urine pH 6.5 (5.0-8.0) Ur Specific [place] 1.019 (1.001-1.035) Urine Protein Trace H (Negative) Urine Glucose (UA) Negative (Negative) Urine Ketones Negative (Negative) Urine Blood Negative (Negative) Urine Nitrite Negative (Negative) Urine Bilirubin Negative (Negative) Urine Urobilinogen <2.0 (<2.0) mg/dL Ur Leukocyte Esterase Moderate H (Negative) Urine RBC 8 H (0-5) /hpf Urine WBC 46 H (0-5) /hpf Ur Squamous Epith Cells 23 H (0-4) /hpf Amorphous Sediment Rare H (None) /hpf Urine Bacteria Occasional H (None) /hpf Urine Mucus Occasional H (None) /hpf Disposition Clinical Impression: Cellulitis, Back pain, UTI (urinary tract infection) Disposition: HOME SELF-CARE Condition: Stable Instructions (If sedation given, give patient instructions): Urinary Tract Infection in Women (ED) Additional Instructions: Please return to the Emergency Department if symptoms worsen or any other concerns. Prescriptions: Amoxic-Pot Clav 875-125Mg [Augmentin 875-125] 1 tab PO Q12HR #20 tab Is patient prescribed a controlled substance at d/c from ED?: No Referrals: Nonstaff,Physician [Primary Care Provider] - 1-2 days Time of Disposition: 22:50
[2024-09-24 22:03] LABS: Amorphous Sediment,Urine Rare /hpf; Appearance,Urine Turbid (Clear); Bacteria,Urine Occasional /hpf; Bilirubin,Urine Negative (Negative); Blood,Urine Negative (Negative); Color,Urine Yellow; Glucose,Urine (UA) Negative (Negative); Ketones,Urine Negative (Negative); Leukocyte Esterase,Urine Moderate (Negative); Mucus,Urine Occasional /hpf; Nitrite,Urine Negative (Negative); PH, Urine 6.5 (5.0-8.0); Protein,Urine Trace (Negative); RBC,Urine 8 /hpf (0-5); Specific Gravity,Urine 1.019 (1.001-1.035); Squamous Epithelial Cell,Urine 23 /hpf (0-4); Urobilinogen,Urine <2.0 mg/dL (<2.0); WBC,Urine 46 /hpf (0-5)
--- NOTE | 2024-09-24 22:06 | XR ---
EXAMINATION TYPE: XR ankle complete RT DATE OF EXAM: 09/24/2024 COMPARISON: NONE HISTORY: Pain TECHNIQUE: Frontal, lateral and oblique images of the right ankle are obtained. FINDINGS: There is no acute fracture/dislocation evident. The joint spaces appear within normal marsh its. Soft tissue swelling over the lateral malleolus. IMPRESSION: 1. No acute fracture or dislocation. 2. Soft tissue swelling of the lateral malleolus. [facility], , 09/24/2024 10:04 PM
--- NOTE | 2024-09-24 22:40 | XR ---
EXAMINATION TYPE: XR lumbar spine 2 or 3V DATE OF EXAM: 09/24/2024 CLINICAL HISTORY: pain TECHNIQUE: Three views of the lumbar spine are submitted. COMPARISON: Lumbar spine radiograph 07/31/2014 FINDINGS: There are 5 lumbar type vertebral bodies identified. Post surgical changes with bilateral pedicular s crews and rods involving L1 and L3 spanning L2 fracture. There is approximately 3 mm retropulsion at this level. Approximately 10% height loss. Hardware appears intact. The lumbar spine shows satisfacto ry alignment without evidence of acute fracture or dislocation. Disc spaces are within normal limits. The overlying soft tissue appears unremarkable. IMPRESSION: 1. No acute fracture or dislocation is seen in the lumbar spine. 2. Postsurgical changes of the lumbar spine for prior L2 fracture. [facility], , 09/24/2024 10:38 PM
[2024-09-24] MEDS: AMOXIC-POT CLAV 875-125MG 1 EACH TAB PO STA (23:00)
[2024-09-24] MEDS: LIDOCAINE 4% PATCH TOPICAL ONE (23:00)
[2024-09-24 23:06] VITALS: BP 122/75; PULSE 117; RESP 16; TEMP 98.9
== END 2024-09-24 23:08 | disposition home or self-care (01) ==
LOC: EC 20:39
DX: M54.50 Low back pain, unspecified (principal); N39.0 Urinary tract infection, site not specified; L03.90 Cellulitis, unspecified; F17.200 Nicotine dependence, unspecified, uncomplicated; Z88.1 Allergy status to other antibiotic agents; Z88.2 Allergy status to sulfonamides; Z91.041 Radiographic dye allergy status
CPT/HCPCS: 81001; 87086; 72100; 73610; 99284; 96372; J2360; J1885

== ENCOUNTER 2024-10-06 11:37 | Emergency (ER) | payer OTHER ==
[2024-10-06 11:46] VITALS: BP 125/75; PULSE 124; RESP 18; TEMP 97.9
--- NOTE | 2024-10-06 12:07 | ED ---
General Adult HPI - General Chief complaint: Recheck/Abnormal Lab/Rx Stated complaint: ostomy problems - abdominal pain Time Seen by Provider: 10/06/24 11:48 Source: patient, RN notes reviewed Mode of arrival: EMS Limitations: no limitations - History of Present Illness Initial comments: 34-year-old female presents emergency department chief complaint of swelling around her stoma, right leg cellulitis. She has been dealing with infection related from injection drugs. Patient was improving but states that she is out of antibiotics. She denies any fevers chills night sweats. Denies any chest pain or shortness of breath no headache or dizziness. Patient states that she noticed some swelling around her stoma thought it was may be infected but denies any redness or any complaints of pain she states she is having normal output. - Related Data Home Medications Medication Instructions Recorded Confirmed Bictegrav/Emtricit/Tenofov Ala 1 tab PO DAILY 03/14/24 03/14/24 [Biktarvy 50-200-25 mg Tablet] Cyclobenzaprine [Flexeril] 5 mg PO TID PRN 03/14/24 03/14/24 Ibuprofen [Motrin] 600 mg PO Q8HR PRN 03/14/24 03/14/24 Lidocaine 5% Oint [Xylocaine 5% 1 applic TOPICAL DAILY 03/14/24 03/14/24 Oint] lamoTRIgine [LaMICtal] 50 mg PO BID 03/14/24 03/14/24 Previous Rx's Medication Instructions Recorded Amoxic-Pot Clav 875-125Mg 1 tab PO Q12HR #20 tab 09/24/24 [Augmentin 875-125] Lidocaine 5% Patch [Lidoderm] 1 patch TOPICAL DAILY #7 patch 09/24/24 clindamycin HCL 300 mg PO QID #40 cap 10/06/24 Allergies Allergy/AdvReac Type Severity Reaction Status Date / Time cephalexin monohydrate Allergy Unknown Verified 10/06/24 11:46 [From Keflex] Sulfa (Sulfonamide Allergy Unknown Verified 10/06/24 11:46 Antibiotics) Iodinated Contrast Media AdvReac Unknown Verified 10/06/24 11:46 Review of Systems ROS Statement: Those systems with pertinent positive or pertinent negative responses have been documented in the HPI. ROS Other: All systems not noted in ROS Statement are negative. Past Medical History Additional Past Medical History / Comment(s): chronic pain syndrome, fracture wrist, HIV History of Any Multi-Drug Resistant Organisms: MRSA Date of last positivie culture/infection: 2009 Past Surgical History: Orthopedic Surgery Additional Past Surgical History / Comment(s): mrsa abscess l elbow, " three knee surgery". oral surgery, back surgery Past Psychological History: Bipolar Smoking Status: Current every day smoker Past Alcohol Use History: None Reported Past Drug Use History: IV Drug Use, Marijuana, Methamphetamine General Exam Limitations: no limitations General appearance: alert, in no apparent distress Head exam: Present: atraumatic, normocephalic, normal inspection Neck exam: Present: normal inspection. Absent: tenderness, meningismus, lymphadenopathy Respiratory exam: Present: normal lung sounds bilaterally. Absent: respiratory distress, wheezes, rales, rhonchi, stridor Cardiovascular Exam: Present: regular rate, normal rhythm, normal heart sounds. Absent: systolic murmur, diastolic murmur, rubs, gallop, clicks GI/Abdominal exam: Present: soft, normal bowel sounds, other (Stoma noted which appears to have but no erythema). Absent: distended, tenderness, guarding, rebound, rigid Course Vital Signs 10/06/24 11:42 Temperature 97.9 F Pulse Rate 124 H Respiratory 18 Rate Blood Pressure 125/75 O2 Sat by Pulse 99 Oximetry Medical Decision Making - Medical Decision Making Was pt. sent in by a medical professional or institution (, PA, REGIONAL OFFICE COORDINATOR, urgent care, hospital, or retirement...) When possible be specific @ -No Did you speak to anyone other than the patient for history (EMS, parent, family, police, friend...)? What history was obtained from this source @ -No Did you review nursing and triage notes (agree or disagree)? Why? @ -I reviewed and agree with nursing and triage notes Were old charts reviewed (outside hosp., previous admission, EMS record, old EKG, old radiological studies, urgent care reports/EKG's, retirement records)? Report findings @ -No old charts were reviewed Differential Diagnosis (chest pain, altered mental status, abdominal pain women, abdominal pain men, vaginal bleeding, weakness, fever, dyspnea, syncope, headache, dizziness, GI bleed, back pain, seizure, CVA, palpatations, mental health, musculoskeletal)? @ -Differential Abdominal Pain Women: Appendicitis, Cholecystitis, diverticulosis, ischemic bowel, pancreatitis, hepatitis, UTI, gastroenteritis, AAA, incarcerated hernia, bowel obstruction, constipation, inflammatory bowel, hepatitis, peptic ulcer disease, splenic infarction, perforated viscus, vulvitis, ovarian torsion, PID, kidney stone, placenta abruption, this is not meant to be an all-inclusive list EKG interpreted by me (3pts min.). @ -None X-rays interpreted by me (1pt min.). @ -None done CT interpreted by me (1pt min.). @ -None done U/S interpreted by me (1pt. min.). @ -None done What testing was considered but not performed or refused? (CT, X-rays, U/S, labs)? Why? @ -None What meds were considered but not given or refused? Why? @ -None Did you discuss the management of the patient with other professionals (professionals i.e. , PA, REGIONAL OFFICE COORDINATOR, lab, RT, psych nurse, social media executive, domestic freight forwarder, teacher, bsa/aml compliance officer, case management manager)? Give summary @ -No Was smoking cessation discussed for >3mins.? @ -No Was critical care preformed (if so, how long)? @ -No Were there social determinants of health that impacted care today? How? (Homelessness, low income, unemployed, alcoholism, drug addiction, transportation, low edu. Level, literacy, decrease access to med. care, [facility], rehab)? @ -No Was there de-escalation of care discussed even if they declined (Discuss DNR or withdrawal of care, Hospice)? DNR status @ -No What co-morbidities impacted this encounter? (DM, HTN, Smoking, COPD, CAD, Cancer, CVA, ARF, Chemo, Hep., AIDS, mental health diagnosis, sleep apnea, morbid obesity)? @ -None Was patient admitted / discharged? Hospital course, mention meds given and route, prescriptions, significant lab abnormalities, going to OR and other pertinent info. @ -[Discharge patient does have a history of drug abuse. There is no signs of infection stoma there may be a parastomal hernia but is having normal output without abdominal pain fevers or chills. Patient course antibiotics to her right lower extremity without joint infection or joint pain. Patient with continued on antibiotics and she is scheduled to see ID on Monday and follow-up with her surgeon. Undiagnosed new problem with uncertain prognosis? @ -No Drug Therapy requiring intensive monitoring for toxicity (Heparin, Nitro, Insulin, Cardizem)? @ -No Were any procedures done? @ -No Diagnosis/symptom? @Cellulitis, hernia Acute, or Chronic, or Acute on Chronic? @ -Acute Uncomplicated (without systemic symptoms) or Complicated (systemic symptoms)? @ -Uncomplicated Side effects of treatment? @ -No Exacerbation, Progression, or Severe Exacerbation? @ -No Poses a threat to life or bodily function? How? (Chest pain, [place], [place], pneumonia, PE, COPD, DKA, ARF, appy, cholecystitis, CVA, Diverticulitis, Homicidal, Suicidal, threat to staff... and all critical care pts) @ -No Disposition Clinical Impression: Hernia, Cellulitis Disposition: HOME SELF-CARE Condition: Stable Instructions (If sedation given, give patient instructions): Cellulitis (ED) Additional Instructions: Please return to the Emergency Department if symptoms worsen or any other concerns. Prescriptions: clindamycin HCL 300 mg PO QID #40 cap Is patient prescribed a controlled substance at d/c from ED?: No Referrals: None,Stated [Primary Care Provider] - 1-2 days Time of Disposition: 12:06
[2024-10-06] MEDS: CLINDAMYCIN 150 MG CAP PO STA (12:22)
== END 2024-10-06 12:30 | disposition home or self-care (01) ==
LOC: EC 11:37
DX: L03.115 Cellulitis of right lower limb (principal); K46.9 Unspecified abdominal hernia without obstruction or gangrene; F17.200 Nicotine dependence, unspecified, uncomplicated; Z88.2 Allergy status to sulfonamides; Z88.1 Allergy status to other antibiotic agents; Z91.041 Radiographic dye allergy status
CPT/HCPCS: 99283

== ENCOUNTER 2024-12-19 16:40 | Emergency (ER) | payer OTHER ==
[2024-12-19 16:45] VITALS: BP 117/76; PULSE 104; RESP 18; TEMP 97.8
--- NOTE | 2024-12-19 17:00 | ED ---
Recheck HPI - General Chief Complaint: Recheck/Abnormal Lab/Rx Stated Complaint: Recheck Time Seen by Provider: 12/19/24 16:46 Source: patient, RN notes reviewed Mode of arrival: ambulatory Limitations: no limitations - History of Present Illness Initial Comments: This is a 34-year-old female who presents to the emergency department for a medication refill. Patient has a history of HIV and is on Biktarvy. States that she has been out of it for the last couple of days and had to reschedule an appointment with infectious disease. States that she just needs a refill for the next month to get her through until her appointment. She did recently have lab work done and was told that everything is stable. MD Complaint: medication refill request - Related Data Home Medications Medication Instructions Recorded Confirmed Cyclobenzaprine [Flexeril] 5 mg PO TID PRN 03/14/24 03/14/24 Ibuprofen [Motrin] 600 mg PO Q8HR PRN 03/14/24 03/14/24 Lidocaine 5% Oint [Xylocaine 5% 1 applic TOPICAL DAILY 03/14/24 03/14/24 Oint] lamoTRIgine [LaMICtal] 50 mg PO BID 03/14/24 03/14/24 Previous Rx's Medication Instructions Recorded Amoxic-Pot Clav 875-125Mg 1 tab PO Q12HR #20 tab 09/24/24 [Augmentin 875-125] Lidocaine 5% Patch [Lidoderm] 1 patch TOPICAL DAILY #7 patch 09/24/24 clindamycin HCL 300 mg PO QID #40 cap 10/06/24 Bictegrav/Emtricit/Tenofov Ala 1 tab PO DAILY 30 Days #30 tab 12/19/24 [Biktarvy 50-200-25 mg Tablet] Allergies Allergy/AdvReac Type Severity Reaction Status Date / Time cephalexin monohydrate Allergy Unknown Verified 10/06/24 11:46 [From Keflex] Sulfa (Sulfonamide Allergy Unknown Verified 10/06/24 11:46 Antibiotics) Iodinated Contrast Media AdvReac Unknown Verified 10/06/24 11:46 Review of Systems ROS Statement: Those systems with pertinent positive or pertinent negative responses have been documented in the HPI. ROS Other: All systems not noted in ROS Statement are negative. Past Medical History Past Medical History: Liver Disease Additional Past Medical History / Comment(s): chronic pain syndrome, fracture wrist, HIV History of Any Multi-Drug Resistant Organisms: MRSA Date of last positivie culture/infection: 2009 Past Surgical History: Orthopedic Surgery Additional Past Surgical History / Comment(s): mrsa abscess l elbow, " three knee surgery". oral surgery, back surgery Past Psychological History: Bipolar Smoking Status: Current every day smoker Past Alcohol Use History: None Reported Past Drug Use History: IV Drug Use, Marijuana, Methamphetamine General Exam Limitations: no limitations General appearance: alert, in no apparent distress Head exam: Present: atraumatic, normocephalic, normal inspection Respiratory exam: Present: normal lung sounds bilaterally. Absent: respiratory distress, wheezes, rales, rhonchi, stridor Cardiovascular Exam: Present: regular rate, normal rhythm Neurological exam: Present: alert, oriented X3, CN II-XII intact Psychiatric exam: Present: normal affect, normal mood Skin exam: Present: warm, dry, intact, normal color. Absent: rash Course Vital Signs 12/19/24 16:41 Temperature 97.8 F Pulse Rate 104 H Respiratory 18 Rate Blood Pressure 117/76 O2 Sat by Pulse 98 Oximetry Medical Decision Making - Medical Decision Making This is a 34 year old female who presents to the emergency department for medication refills. Was pt. sent in by a medical professional or institution? @ -No Did you speak to anyone other than the patient for history? @ -No Did you review nursing and triage notes? @ -Yes, and I agree, it is accurate with regards to the patient's symptoms. Were old charts reviewed? @ -No Differential Diagnosis? @ -Encounter for medication refill, encounter for laboratory testing, this is not meant to be an all-inclusive list. EKG interpreted by me (3pts min.)? @ -Not obtained X-rays interpreted by me (1pt min.)? @ -Not obtained CT interpreted by me (1pt min.)? @ -Not obtained U/S interpreted by me (1pt. min.)? @ -Not obtained What testing was considered but not performed? (CT, X-rays, U/S, labs)? Why? @ -None What meds were considered but not given? Why? @ -None Did you discuss the management of the patient with other professionals? @ -No Did you reconcile home meds? @ -No Was smoking cessation discussed for >3mins.? @ -No Was critical care preformed (if so, how long)? @ -No Were there social determinants of health that impacted care today? How? (Homelessness, low income, unemployed, alcoholism, drug addiction, transportation, low edu. Level, literacy, decrease access to med. care, retirement, rehab)? @ -No Was there de-escalation of care discussed even if they declined? (Discuss DNR or withdrawal of care, Hospice)? @ -No What co-morbidities impacted this encounter? (DM, HTN, Smoking, COPD, CAD, Cancer, CVA, Hep., AIDS, mental health diagnosis, sleep apnea, morbid obesity)? @ -HIV Was patient admitted / discharged? @ -Discharged. Refill on Biktarvy provided. Advised she follow-up with her PCP and ID for reevaluation and ongoing medication management. Patient discharged home in stable condition. Case discussed with ED attending Dr. Garber. Return precautions reviewed in depth, the patient is instructed to return to the emergency department with any new, worsening, or concerning symptoms. Patient verbalized understanding. Undiagnosed new problem with uncertain prognosis? @ -None Drug Therapy requiring intensive monitoring for toxicity (Heparin, Nitro, Insulin, Cardizem)? @ -None Were any procedures done? @ -None Diagnosis/symptom? @ -Encounter for medication refill Acute, or Chronic, or Acute on Chronic? @ -Acute Uncomplicated (without systemic symptoms) or Complicated (systemic symptoms)? @ -Uncomplicated Side effects of treatment? @ -None Exacerbation, Progression, or Severe Exacerbation] @ -Not applicable Poses a threat to life or bodily function? @ -No Disposition Clinical Impression: Encounter for medication refill Disposition: HOME SELF-CARE Additional Instructions: Return to the emergency department with any new, worsening, or concerning symptoms. Follow up with your primary care provider and infectious disease. Prescriptions: Bictegrav/Emtricit/Tenofov Ala [Biktarvy 50-200-25 mg Tablet] 1 tab PO DAILY 30 Days #30 tab Is patient prescribed a controlled substance at d/c from ED?: No Referrals: Nonstaff,Physician [Primary Care Provider] - 1-2 days Time of Disposition: 17:00
== END 2024-12-19 17:30 | disposition home or self-care (01) ==
LOC: EC 16:40
DX: Z76.0 Encounter for issue of repeat prescription (principal); F17.200 Nicotine dependence, unspecified, uncomplicated; Z88.2 Allergy status to sulfonamides; Z88.1 Allergy status to other antibiotic agents; Z91.041 Radiographic dye allergy status
CPT/HCPCS: 99281